=== PATIENT | female | born 1985 | race Caucasian/White ===

== ENCOUNTER 2017-09-18 18:23 | Emergency (ER) | payer OTHER ==
[~2017-09-18] VITALS: Ht 152.4 cm; Wt 70.3 kg
[2017-09-18] MEDS ORDERED: TRAMADOL 50 MG50 MG PO (18:48)
[2017-09-18] MEDS ORDERED: IBUPROFEN 800800 M1 PO (18:48)
[2017-09-18] MEDS ORDERED: AMOXICILLIN 50500 MG PO (18:48)
[2017-09-18] MEDS ORDERED: LIDOCAINE VISC100 ML SWISH&SPIT (18:48)
[2017-09-18 19:03] VITALS: BP 142/100
== END 2017-09-18 19:03 | disposition home or self-care (01) ==
LOC: M.ERS 18:23
DX: K08.89 Other specified disorders of teeth and supporting structures (principal)